=== PATIENT | female | born 1965 | race African-American/Black ===

== ENCOUNTER 2017-02-07 15:25 | Observation (INO) | payer BC ==
--- NOTE | 2017-02-07 16:04 | ER Document Report ---
ED Medical Screen (RME) - General Chief Complaint: Chest Pain Stated Complaint: CHEST PAIN Time seen by provider: 16:01 Mode of Arrival: Wheelchair Information source: Patient TRAVEL OUTSIDE OF THE [place] IN LAST 30 DAYS: No - HPI Patient complains to provider of: chest pain, lightheaded Onset: This afternoon - 2pm Onset/Duration: Sudden Quality of pain: Pressure, Stabbing Severity: Moderate Pain Level: 3 Associated Symptoms: Chest pain, Nausea, Shortness of breath, Sweating Exacerbated by: Denies Relieved by: Denies Similar symptoms previously: Yes Recently seen / treated by doctor: Yes Notes: 02/07/17 16:04 02/07/17 16:05 Patient is a 51-year-old female with history of high blood pressure and diabetes who presents to the emergency room complaining of sharp stabbing chest pain that started around 2 PM she was at work, patient reports she took 3 sublingual nitroglycerin and 3 baby aspirin prior to arrival and her symptoms have begun to resolve intermittently, she reports some shortness of breath as well as a flushing sensation at onset of symptoms - Related Data Allergies/Adverse Reactions: codeine Allergy (Verified 07/05/16 17:03) propofol [From Diprivan] Adverse Reaction (Verified 07/05/16 15:16) Past Medical History - Past Medical History Cardiac Medical History: Reports: Hx Atrial Fibrillation, Hx Heart Attack - Per patient, Hx Hypercholesterolemia, Hx Hypertension Neurological Medical History: Denies: Hx Seizures Endocrine Medical History: Reports: Hx Diabetes Mellitus Type 2 Renal/ Medical History: Denies: Hx Peritoneal Dialysis GI Medical History: Reports: Hx Hiatal Hernia Past Surgical History: Reports: Hx Cardiac Catheterization, Hx Gynecologic Surgery - Hx Laparoscopy., Hx Hysterectomy, Hx Tubal Ligation - Immunizations Hx Diphtheria, Pertussis, Tetanus Vaccination: Yes Physical Exam - Vital signs Vitals: Temp Pulse Resp BP Pulse Ox 98.1 F 86 20 157/85 H 100 02/07/17 15:50 02/07/17 15:50 02/07/17 15:50 02/07/17 15:50 02/07/17 15:50 Course - Vital Signs Vital signs: Temp Pulse Resp BP Pulse Ox 98.1 F 86 20 157/85 H 100 02/07/17 15:50 02/07/17 15:50 02/07/17 15:50 02/07/17 15:50 02/07/17 15:50
[2017-02-07 16:37] LABS: APPEARANCE,URINE CLEAR; BILIRUBIN,URINE NEGATIVE (NEGATIVE); GLUCOSE, URINE >=500 mg/dL (NEGATIVE); KETONES,URINE TRACE mg/dL (NEGATIVE); LEUKOCYTE ESTERASE,URINE NEGATIVE (NEGATIVE); NITRITE,URINE NEGATIVE (NEGATIVE); PROTEIN,URINE NEGATIVE (NEGATIVE); URINE SPECIFIC GRAVITY 1.036; UROBILINOGEN,URINE NEGATIVE mg/dL (<2.0)
[2017-02-07 16:41] LABS: ABSOLUTE EOSINOPHILS # (AUTO) 0.1 10^3/uL (0.0-0.6); ABSOLUTE LYMPHOCYTES (AUTO) 3.3 10^3/uL (0.5-4.7); ABSOLUTE MONOCYTES (AUTO) 0.5 10^3/uL (0.1-1.4); ABSOLUTE NEUT (AUTO) 5.5 10^3/uL (1.7-8.2); BASOPHILS % (AUTO) 0.4 % (0-2); EOSINOPHILS % (AUTO) 0.6 % (0-6); HEMATOCRIT 33.6 % (36.0-47.0); HEMOGLOBIN 11.1 g/dL (12.0-15.5); HGB HCT DIFFERENCE -0.3; LYMPHOCYTES % (AUTO) 35.4 % (13-45); MEAN CORPUSCULAR HGB CONC 32.9 g/dL (32.0-36.0); MEAN CORPUSCULAR VOLUME 85 fl (80-97); MONOCYTES % (AUTO) 5.1 % (3-13); RED BLOOD COUNT 3.96 10^6/uL (3.72-5.28); RED CELL DISTRIBUTION WIDTH 12.8 % (11.5-14.0); SEGMENTED NEUTROPHILS % (AUTO) 58.5 % (42-78); WHITE BLOOD COUNT 9.3 10^3/uL (4.0-10.5)
[2017-02-07 16:52] LABS: ALANINE AMINOTRANSFERASE 51 U/L (9-52); ALBUMIN 4.1 g/dL (3.5-5.0); ALKALINE PHOSPHATASE 76 U/L (38-126); ANION GAP 12 (5-19); ASPARTATE AMINO TRANSFERASE 38 U/L (14-36); BILIRUBIN,DIRECT 0.1 mg/dL (0.0-0.4); BILIRUBIN,TOTAL 0.3 mg/dL (0.2-1.3); BLOOD UREA NITROGEN 13 mg/dL (7-20); CARBON DIOXIDE 28 mmol/L (22-30); CHLORIDE 102 mmol/L (98-107); CREATINE KINASE 75 U/L (30-135); CREATININE RESULT 0.67 mg/dL (0.52-1.25); GLUCOSE 389 mg/dL (75-110); SODIUM 141.9 mmol/L (137-145); TOTAL PROTEIN 6.8 g/dL (6.3-8.2)
[2017-02-07 17:10] LABS: CREATINE KINASE MB 0.31 ng/mL (<4.55)
[2017-02-07 17:11] LABS: TROPONIN I < 0.012 ng/mL
--- NOTE | 2017-02-07 18:04 | ER Document Report ---
ED Cardiac - General Chief Complaint: Chest Pain Stated Complaint: CHEST PAIN Time seen by provider: 18:02 Mode of Arrival: Ambulatory Information source: Patient TRAVEL OUTSIDE OF THE [place] IN LAST 30 DAYS: No - HPI Patient complains to provider of: Chest pain Was the onset of pain: Sudden Is the pain a: New problem Chest pain location: Substernal Quality of pain: Heaviness - Related Data Allergies/Adverse Reactions: acetaminophen [From Tylenol] Allergy (Verified 02/07/17 17:57) codeine Allergy (Verified 02/07/17 17:57) propofol [From Diprivan] Adverse Reaction (Verified 02/07/17 17:57) Past Medical History - General Information source: Patient - Social History Smoking Status: Unknown if Ever Smoked Family History: Reviewed & Not Pertinent Patient has suicidal ideation: No Patient has homicidal ideation: No - Past Medical History Cardiac Medical History: Reports: Hx Atrial Fibrillation, Hx Heart Attack - Per patient, Hx Hypercholesterolemia, Hx Hypertension Neurological Medical History: Denies: Hx Seizures Endocrine Medical History: Reports: Hx Diabetes Mellitus Type 2 Renal/ Medical History: Denies: Hx Peritoneal Dialysis GI Medical History: Reports: Hx Hiatal Hernia Past Surgical History: Reports: Hx Cardiac Catheterization, Hx Gynecologic Surgery - Hx Laparoscopy., Hx Hysterectomy, Hx Tubal Ligation - Immunizations Hx Diphtheria, Pertussis, Tetanus Vaccination: Yes Hx Pneumococcal Vaccination: 10/23/12 Physical Exam - Vital signs Vitals: Temp Pulse Resp BP Pulse Ox 98.1 F 86 20 157/85 H 100 02/07/17 15:50 02/07/17 15:50 02/07/17 15:50 02/07/17 15:50 02/07/17 15:50 Course - Vital Signs Vital signs: Temp Pulse Resp BP Pulse Ox 98.1 F 86 20 157/85 H 100 02/07/17 15:50 02/07/17 15:50 02/07/17 15:50 02/07/17 15:50 02/07/17 15:50 - Laboratory Result Diagrams: 02/07/17 16:10 02/07/17 16:10 Laboratory results interpreted by me: 02/07/17 02/07/17 02/07/17 16:10 16:10 16:10 Hgb 11.1 L Hct 33.6 L Glucose 389 H AST 38 H Urine Glucose (UA) >=500 H Urine Ketones TRACE H Discharge - Discharge Clinical Impression: Chest pain Qualifiers: Chest pain type: unspecified Qualified Code(s): R07.9 - Chest pain, unspecified Condition: Stable Disposition: ADMITTED OBSERVATION Admitting Provider: Hospitalist Unit Admitted: Telemetry
[2017-02-07] MEDS ORDERED: ONDANSETRON HCL INJ/PF 4 MG/2 ML SDV IV PRN (18:16)
[2017-02-07] MEDS ORDERED: TRAMADOL HCL 50 MG TABLET PO PRN (18:19)
[2017-02-07] MEDS ORDERED: GLUCAGON,HUMAN RECOMB 1 MG INJ IM PRN (18:20)
[2017-02-07] MEDS ORDERED: HYDRALAZINE HCL INJ/PF 20 MG/1 ML SDV IV PRN (18:20)
[2017-02-07] MEDS ORDERED: DEXTROSE 40% GEL 15 GM TUBE PO PRN ×2 (18:20)
[2017-02-07] MEDS ORDERED: DEXTROSE 50%-WATER 25 GM/50 ML DISP.SYRIN IV PRN ×2 (18:20)
--- NOTE | 2017-02-07 18:52 | PDOC H&P ---
History of Present Illness Admission Date/PCP: 02/07/17 18:28 IGNACIO CORBETT MD Patient complains of: Chest pain History of Present Illness: DAVID BAIN is a 51 year old female with past medical history of hypertension, diabetes, hypercholesterolemia that presents with onset of chest pain at 2 PM this afternoon while she was at work. She works at the [employer] and was administered aspirin and nitroglycerin the clinic. Her blood pressure at that time was in the 170/90 range. She states that she sees Dr. Magana of cardiology in [facility] for SVT. She states that she had a cardiac catheterization in October 2016 that showed "blockages" but she did not require intervention. Past Medical History Cardiac Medical History: Reports: Hyperlipidema, Hypertension, Other - SVT Neurological Medical History: Denies: Seizures Endocrine Medical History: Reports: Diabetes Mellitus Type 2 GI Medical History: Reports: Hiatal Hernia Past Surgical History Past Surgical History: Reports: Cardiac Catheterization, Hysterectomy, Tubal Ligation Social History Information Source: Patient Lives with: Family Smoking Status: Never Smoker Frequency of Alcohol Use: Rare Hx Recreational Drug Use: No Hx Prescription Drug Abuse: No - Advance Directive Resuscitation Status: Full Code Family History Family History: CAD, CVA, Malignancy Parental Family History Reviewed: Yes Children Family History Reviewed: Yes Sibling(s) Family History Reviewed.: Yes Medication/Allergy Home Medications: Valsartan/Hydrochlorothiazide [Valsartan-Hctz 160-25 mg Tab] 1 each PO QAM 09/15 Ergocalciferol (Vitamin D2) [Vitamin D2] 50,000 unit PO Q7D 07/05/16 Metformin HCl [Glucophage] 1,000 mg PO BID 07/05/16 Omeprazole [Prilosec] 20 mg PO DAILY 07/05/16 Atorvastatin Calcium [Lipitor 40 mg Tablet] 80 mg PO QHS #30 tablet 07/06/16 Flecainide Acetate [Tambocor 100 mg Tablet] 50 mg PO Q12 tablet 07/06/16 Glimepiride [Amaryl 4 mg Tablet] 4 mg PO BID #60 tablet 07/06/16 Sitagliptin Phosphate [Januvia 50 mg Tablet] 50 mg PO DAILY #30 tablet 07/06/16 Allergies/Adverse Reactions: acetaminophen [From Tylenol] Allergy (Verified 02/07/17 17:57) codeine Allergy (Verified 02/07/17 17:57) propofol [From Diprivan] Adverse Reaction (Verified 02/07/17 17:57) Review of Systems Constitutional: ABSENT: chills, fever(s), headache(s), weight gain, weight loss Eyes: ABSENT: visual disturbances Ears: ABSENT: hearing changes Cardiovascular: PRESENT: chest pain. ABSENT: dyspnea on exertion, edema, orthropnea, palpitations Respiratory: PRESENT: dyspnea. ABSENT: cough, hemoptysis Gastrointestinal: ABSENT: abdominal pain, constipation, diarrhea, hematemesis, hematochezia, nausea, vomiting Genitourinary: ABSENT: dysuria, hematuria Musculoskeletal: ABSENT: joint swelling Integumentary: ABSENT: rash, wounds Neurological: ABSENT: abnormal gait, abnormal speech, confusion, dizziness, focal weakness, syncope Psychiatric: ABSENT: anxiety, depression, homidical ideation, suicidal ideation Endocrine: ABSENT: cold intolerance, heat intolerance, polydipsia, polyuria Hematologic/Lymphatic: ABSENT: easy bleeding, easy bruising Physical Exam Vital Signs: Temp Pulse Resp BP Pulse Ox 98.1 F 86 20 157/85 H 100 02/07/17 15:50 02/07/17 15:50 02/07/17 15:50 02/07/17 15:50 02/07/17 15:50 PHYSICAL EXAM: GENERAL: Appears well, no acute distress HEENT: Normocephalic, no scleral icterus, conjunctiva clear, EOEM intact, PERRLA , moist mucous membranes NECK: trachea midline, no thyromegally RESPIRATORY: Clear to auscultation, no wheezes/rhonchi CARDIAC: Regular rate and rhythm, no murmur/marta/rub ABDOMEN: Soft, no distension, no tenderness, no guarding, normal bowel sounds, negative Calderón sign RECTAL: deferred : deferred EXTREMITIES: No edema, cyanosis, clubbing MUSCULOSKELETAL: No joint swelling or deformity VASCULAR: normal peripheral pulses NEUROLOGIC: Alert, oriented to person/place/time, normal speech, cranial nerves grossly intact, 5/5 strength in all extremities, tactile sensation intact in all extremities SKIN: No rash, no wounds, no worrisome skin lesions PSYCHIATRIC: Normal mood, normal affect Results Laboratory Results: Labs- All tests 24 hr 02/07/17 02/07/17 02/07/17 16:10 16:10 16:10 WBC 9.3 RBC 3.96 Hgb 11.1 L Hct 33.6 L MCV 85 MCH 28.0 MCHC 32.9 RDW 12.8 Plt Count 254 Seg Neutrophils % 58.5 Lymphocytes % 35.4 Monocytes % 5.1 Eosinophils % 0.6 Basophils % 0.4 Absolute Neutrophils 5.5 Absolute Lymphocytes 3.3 Absolute Monocytes 0.5 Absolute Eosinophils 0.1 Absolute Basophils 0.0 Sodium 141.9 Potassium 4.0 Chloride 102 Carbon Dioxide 28 Anion Gap 12 BUN 13 Creatinine 0.67 Est GFR ( Amer) > 60 Est GFR (Non-Af Amer) > 60 Glucose 389 H Calcium 10.0 Total Bilirubin 0.3 Direct Bilirubin 0.1 Indirect Bilirubin Not Reportable Neonat Total Bilirubin Not Reportable AST 38 H ALT 51 Alkaline Phosphatase 76 Creatine Kinase 75 CK-MB (CK-2) 0.31 Troponin I < 0.012 Total Protein 6.8 Albumin 4.1 Urine Color Urine Appearance Urine pH Ur Specific [place] Urine Protein Urine Glucose (UA) Urine Ketones Urine Blood Urine Nitrite Urine Bilirubin Urine Urobilinogen Ur Leukocyte Esterase Urine WBC (Auto) Urine RBC (Auto) Squamous Epi Cells Auto Urine Mucus (Auto) Urine Ascorbic Acid 02/07/17 16:10 WBC RBC Hgb Hct MCV MCH MCHC RDW Plt Count Seg Neutrophils % Lymphocytes % Monocytes % Eosinophils % Basophils % Absolute Neutrophils Absolute Lymphocytes Absolute Monocytes Absolute Eosinophils Absolute Basophils Sodium Potassium Chloride Carbon Dioxide Anion Gap BUN Creatinine Est GFR ( Amer) Est GFR (Non-Af Amer) Glucose Calcium Total Bilirubin Direct Bilirubin Indirect Bilirubin Neonat Total Bilirubin AST ALT Alkaline Phosphatase Creatine Kinase CK-MB (CK-2) Troponin I Total Protein Albumin Urine Color YELLOW Urine Appearance CLEAR Urine pH 5.0 Ur Specific [place] 1.036 Urine Protein NEGATIVE Urine Glucose (UA) >=500 H Urine Ketones TRACE H Urine Blood NEGATIVE Urine Nitrite NEGATIVE Urine Bilirubin NEGATIVE Urine Urobilinogen NEGATIVE Ur Leukocyte Esterase NEGATIVE Urine WBC (Auto) 1 Urine RBC (Auto) 0 Squamous Epi Cells Auto <1 Urine Mucus (Auto) RARE Urine Ascorbic Acid NEGATIVE EKG Comments: Sinus rhythm, no acute ST/T-wave changes Impressions: Chest X-Ray 02/07/17 16:05 IMPRESSION: NO SIGNIFICANT RADIOGRAPHIC FINDING IN THE CHEST. Assessment & Plan - Diagnosis (1) Chest pain Qualifiers: Chest pain type: unspecified Qualified Code(s): R07.9 - Chest pain, unspecified Is this a current diagnosis for this admission?: YesPlan: Place in observation status on telemetry monitoring. Continue aspirin. Check lipid panel. Check serial cardiac enzymes. Stress test in a.m. Obtain cardiac catheter report from earlier this year. (2) History of PSVT (paroxysmal supraventricular tachycardia) Is this a current diagnosis for this admission?: YesPlan: Followed by Dr. Magana of cardiology in [facility]. (3) DM w/o complication type II Qualifiers: Diabetes mellitus custodial insulin use: without terminal worker use Qualified Code(s): E11.9 - Type 2 diabetes mellitus without complications Is this a current diagnosis for this admission?: YesPlan: Sliding scale insulin for now. Verify home medications. (4) Dyslipidemia Is this a current diagnosis for this admission?: YesPlan: Lipitor 80 mg daily. (5) HTN (hypertension) Qualifiers: Hypertension type: essential hypertension Qualified Code(s): I10 - Essential (primary) hypertension Is this a current diagnosis for this admission?: YesPlan: When necessary IV hydralazine for now. Verify home medications. - Time Time Spent: Greater than 70 Minutes
[2017-02-07] MEDS: INSULIN LISPRO 100 UNIT/ML 3 ML VIAL SUBCUT PRN (18:58)
--- NOTE | 2017-02-07 19:38 | EKG REPORT ---
SEVERITY:- ABNORMAL ECG - SINUS RHYTHM NONSPECIFIC T ABNORMALITIES, ANT-LAT LEADS : Confirmed by: Arlene Pabon MD 07-Feb-2017 19:37:15
[2017-02-07] MEDS ORDERED: ATORVASTATIN CALCIUM 80 MG TABLET PO SCH (22:00)
[2017-02-07 23:00] LABS: TROPONIN I < 0.012 ng/mL
[2017-02-08] MEDS ORDERED: ACETAMINOPHEN 325 MG TABLET PO PRN (04:22)
[2017-02-08] MEDS ORDERED: MAG HYDROX/AL HYDROX/SIMETH SUSP 30 ML UDCUP PO ONE (04:23)
[2017-02-08] MEDS ORDERED: LANSOPRAZOLE 30 MG TAB.RAP.DR PO ONE (04:23)
[2017-02-08 04:26] LABS: CHOLESTEROL 231.33 mg/dL (0-200); CREATINE KINASE 61 U/L (30-135); Direct HDL 53 mg/dL (>40); TRIGLYCERIDES 188 mg/dL (<150)
[2017-02-08 04:37] LABS: DIRECT LDL 143 mg/dL (<100)
[2017-02-08 04:38] LABS: CREATINE KINASE MB 0.26 ng/mL (<4.55)
[2017-02-08 04:39] LABS: TROPONIN I < 0.012 ng/mL; VLDL CHOLESTEROL 37.6 mg/dL (10-31)
[2017-02-08] MEDS ORDERED: METFORMIN HCL 500 MG TABLET PO SCH (08:00)
[2017-02-08] MEDS ORDERED: ENOXAPARIN SODIUM INJ 40 MG/0.4 ML DISP.SYRIN SUBCUT SCH (08:00)
[2017-02-08] MEDS: INSULIN LISPRO 100 UNIT/ML 3 ML VIAL SUBCUT PRN ×2 (08:27→11:51)
--- NOTE | 2017-02-08 08:31 | EKG REPORT ---
SEVERITY:- BORDERLINE ECG - SINUS RHYTHM BORDERLINE T ABNORMALITIES, ANT-LAT LEADS : Confirmed by: Arlene Pabon MD 08-Feb-2017 08:31:05
[2017-02-08] MEDS ORDERED: METFORMIN HCL PO SCH (10:00)
[2017-02-08] MEDS ORDERED: VALSARTAN 160 MG TABLET PO SCH (10:00)
[2017-02-08] MEDS ORDERED: METOPROLOL SUCCINATE 25 MG TAB.SR.24H PO SCH (10:00)
[2017-02-08] MEDS ORDERED: SITAGLIPTIN PHOSPHATE 50 MG TABLET PO SCH (10:00)
[2017-02-08] MEDS ORDERED: SAXAGLIPTIN HCL PO SCH (10:00)
[2017-02-08] MEDS ORDERED: (PENDING PHARMACY ID) (Valsartan/Hydrochlorothiazide [Diovan Hct 160-25 Mg Tablet] 1 TAB) PO SCH (10:00)
[2017-02-08] MEDS ORDERED: HYDROCHLOROTHIAZIDE 25 MG TABLET PO SCH (10:00)
[2017-02-08] MEDS ORDERED: [UNRECOGNIZED DRUG - OTHER] PO SCH (10:00)
[2017-02-08] MEDS ORDERED: ASPIRIN 81 MG TABLET, ENT COATED PO SCH (10:00)
[2017-02-08 10:44] LABS: TROPONIN I < 0.012 ng/mL
[2017-02-08] MEDS ORDERED: GLIMEPIRIDE 4 MG TABLET PO SCH (12:00)
[2017-02-08 12:28] VITALS: BP 128/73
--- NOTE | 2017-02-08 12:55 | PDOC DISCHARGE SUMMARY ---
General - Admit/Disc Date/PCP Admission Date/Primary Care Provider: 02/07/17 18:16 IGNACIO CORBETT MD Discharge Date: 02/08/17 - Discharge Diagnosis (1) Chest pain Is this a current diagnosis for this admission?: Yes (2) DM w/o complication type II Is this a current diagnosis for this admission?: Yes (3) Dyslipidemia Is this a current diagnosis for this admission?: Yes (4) HTN (hypertension) Is this a current diagnosis for this admission?: Yes - Additional Information Resuscitation Status: Full Code Discharge Diet: Cardiac, Diabetic Discharge Activity: Activity As Tolerated Home Medications: Ergocalciferol (Vitamin D2) [Vitamin D2] 50,000 unit PO THRASHER@1000 02/07/17 Glimepiride [Amaryl 4 mg Tablet] 4 mg PO BID@1200,2200 02/07/17 Metoprolol Succinate [Toprol Xl 25 mg Tab.sr] 25 mg PO DAILY 02/07/17 Saxagliptin HCl/Metformin HCl [Kombiglyze Xr 2.5-1,000 mg Tab] 1 each PO BID Valsartan/Hydrochlorothiazide [Diovan Hct 160-25 mg Tablet] 1 tab PO DAILY 02/07 Acetaminophen [Tylenol 325 mg Tablet] 650 mg PO Q8HP PRN tablet 02/08/17 Aspirin [Ecotrin 81 mg EC Tablet] 81 mg PO DAILY tabec 02/08/17 Atorvastatin Calcium [Lipitor 40 mg Tablet] 40 mg PO QHS #30 tablet 02/08/17 History of Present Illness Patient complains of: Chest pain History of Present Illness: DAVID BAIN is a 51 year old female with past medical history of hypertension, diabetes, hypercholesterolemia that presents with onset of chest pain at 2 PM this afternoon while she was at work. She works at the [employer] and was administered aspirin and nitroglycerin the clinic. Her blood pressure at that time was in the 170/90 range. She states that she sees Dr. Magana of cardiology in [facility] for SVT. She states that she had a cardiac catheterization in October 2016 that showed "blockages" but she did not require intervention. Hospital Course Hospital Course: Patient was admitted for chest pain. Serial cardiac enzymes were negative for HI. Patient had a cardiac catheterization in October 2015 that was completely normal. Cardiac catheterization report was obtained from [facility]. Case was discussed with patient's instructor of nursing Dr. Mine Magana. Dr. Magana states the patient has a history of PACs but no history of coronary artery disease. Patient is to follow-up with Dr. Magana is now patient. She will need to resume treatment for hypercholesterolemia and improve control of her diabetes. With regard to patient's hypercholesterolemia, she is not taking medications as prescribed. She was supposed be on Lipitor 80 mg daily but it doesn't look like this is been filled in the past 6 months. I will restart her on Lipitor 40 mg daily based on elevated cholesterol readings. With regard to patient's diabetes, hemoglobin A1c is 9.5 indicating poor outpatient control. According to her she does not follow a diabetic diet and eats a lot of "sweets" and drinks sodas. She is followed by Dr. Hopper of endocrinology in [facility]. I have advised her to continue her current diabetic regimen and follow a strict diabetic diet. She has follow-up appointment with Dr. Hopper in March of this year. Physical Exam Vital Signs: Temp Pulse Resp BP Pulse Ox 97.9 F 72 20 150/70 H 100 02/08/17 12:15 02/08/17 12:15 02/08/17 12:15 02/08/17 12:15 02/08/17 12:15 Intake & Output 02/07/17 02/08/17 02/09/17 06:59 06:59 06:59 Intake Total 237 Balance 237 Weight 72 kg GENERAL: No acute distress HEENT: Conjunctiva clear, nonicteric, moist mucous membranes, no JVD, midline trachea RESPIRATORY: Clear to auscultation bilaterally, no wheezes, no rhonchi CARDIAC: Regular rate and rhythm, no murmurs/gallops/rubs ABDOMEN: Soft, nondistended, nontender, positive bowel sounds, no rebound, no guarding EXTREMETIES: No edema, cyanosis, clubbing NEUROLOGIC: Alert, oriented to person/place/time, CN's grossly intact, no focal deficits SKIN: No rash, wounds PSYCH: Normal mood, normal affect Results Laboratory Results: 02/08/17 03:55 Triglycerides 188 H Cholesterol 231.33 H LDL Cholesterol Direct 143 H VLDL Cholesterol 37.6 H HDL Cholesterol 53 02/07/17 02/07/17 02/08/17 22:15 22:15 03:55 Creatine Kinase 73 CK-MB (CK-2) 0.30 0.26 Troponin I < 0.012 < 0.012 02/08/17 02/08/17 03:55 09:51 Creatine Kinase 61 CK-MB (CK-2) 0.30 Troponin I < 0.012 Labs- Last Values WBC 9.3 10^3/uL (4.0-10.5) 02/07/17 16:10 RBC 3.96 10^6/uL (3.72-5.28) 02/07/17 16:10 Hgb 11.1 g/dL (12.0-15.5) L 02/07/17 16:10 Hct 33.6 % (36.0-47.0) L 02/07/17 16:10 MCV 85 fl (80-97) 02/07/17 16:10 MCH 28.0 pg (27.0-33.4) 02/07/17 16:10 MCHC 32.9 g/dL (32.0-36.0) 02/07/17 16:10 RDW 12.8 % (11.5-14.0) 02/07/17 16:10 Plt Count 254 10^3/uL (150-450) 02/07/17 16:10 Seg Neutrophils % 58.5 % (42-78) 02/07/17 16:10 Lymphocytes % 35.4 % (13-45) 02/07/17 16:10 Monocytes % 5.1 % (3-13) 02/07/17 16:10 Eosinophils % 0.6 % (0-6) 02/07/17 16:10 Basophils % 0.4 % (0-2) 02/07/17 16:10 Absolute Neutrophils 5.5 10^3/uL (1.7-8.2) 02/07/17 16:10 Absolute Lymphocytes 3.3 10^3/uL (0.5-4.7) 02/07/17 16:10 Absolute Monocytes 0.5 10^3/uL (0.1-1.4) 02/07/17 16:10 Absolute Eosinophils 0.1 10^3/uL (0.0-0.6) 02/07/17 16:10 Absolute Basophils 0.0 10^3/uL (0.0-0.2) 02/07/17 16:10 Sodium 141.9 mmol/L (137-145) 02/07/17 16:10 Potassium 4.0 mmol/L (3.6-5.0) 02/07/17 16:10 Chloride 102 mmol/L (98-107) 02/07/17 16:10 Carbon Dioxide 28 mmol/L (22-30) 02/07/17 16:10 Anion Gap 12 (5-19) 02/07/17 16:10 BUN 13 mg/dL (7-20) 02/07/17 16:10 Creatinine 0.67 mg/dL (0.52-1.25) 02/07/17 16:10 Est GFR ( Amer) > 60 (>60) 02/07/17 16:10 Est GFR (Non-Af Amer) > 60 (>60) 02/07/17 16:10 Glucose 389 mg/dL (75-110) H 02/07/17 16:10 POC Glucose 210 mg/dL (70-110) H 02/08/17 11:20 Hemoglobin A1c % 9.5 % (4.7-6.0) H 02/08/17 03:55 Calcium 10.0 mg/dL (8.4-10.2) 02/07/17 16:10 Total Bilirubin 0.3 mg/dL (0.2-1.3) 02/07/17 16:10 Direct Bilirubin 0.1 mg/dL (0.0-0.4) 02/07/17 16:10 Indirect Bilirubin Not Reportable 02/07/17 16:10 Neonat Total Bilirubin Not Reportable 02/07/17 16:10 AST 38 U/L (14-36) H 02/07/17 16:10 ALT 51 U/L (9-52) 02/07/17 16:10 Alkaline Phosphatase 76 U/L (38-126) 02/07/17 16:10 Creatine Kinase 61 U/L (30-135) 02/08/17 03:55 CK-MB (CK-2) 0.30 ng/mL (<4.55) 02/08/17 09:51 Troponin I < 0.012 ng/mL 02/08/17 09:51 Total Protein 6.8 g/dL (6.3-8.2) 02/07/17 16:10 Albumin 4.1 g/dL (3.5-5.0) 02/07/17 16:10 Triglycerides 188 mg/dL (<150) H 02/08/17 03:55 Cholesterol 231.33 mg/dL (0-200) H 02/08/17 03:55 LDL Cholesterol Direct 143 mg/dL (<100) H 02/08/17 03:55 VLDL Cholesterol 37.6 mg/dL (10-31) H 02/08/17 03:55 HDL Cholesterol 53 mg/dL (>40) 02/08/17 03:55 Urine Color YELLOW 02/07/17 16:10 Urine Appearance CLEAR 02/07/17 16:10 Urine pH 5.0 (5.0-9.0) 02/07/17 16:10 Ur Specific [place] 1.036 02/07/17 16:10 Urine Protein NEGATIVE mg/dL (NEGATIVE) 02/07/17 16:10 Urine Glucose (UA) >=500 mg/dL (NEGATIVE) H 02/07/17 16:10 Urine Ketones TRACE mg/dL (NEGATIVE) H 02/07/17 16:10 Urine Blood NEGATIVE (NEGATIVE) 02/07/17 16:10 Urine Nitrite NEGATIVE (NEGATIVE) 02/07/17 16:10 Urine Bilirubin NEGATIVE (NEGATIVE) 02/07/17 16:10 Urine Urobilinogen NEGATIVE mg/dL (<2.0) 02/07/17 16:10 Ur Leukocyte Esterase NEGATIVE (NEGATIVE) 02/07/17 16:10 Urine WBC (Auto) 1 /HPF 02/07/17 16:10 Urine RBC (Auto) 0 /HPF 02/07/17 16:10 Squamous Epi Cells Auto <1 /HPF 02/07/17 16:10 Urine Mucus (Auto) RARE /LPF 02/07/17 16:10 Urine Ascorbic Acid NEGATIVE (NEGATIVE) 02/07/17 16:10 Impressions: Chest X-Ray 02/07/17 16:05 IMPRESSION: NO SIGNIFICANT RADIOGRAPHIC FINDING IN THE CHEST. Qualifiers PATEINT BEING DISCHARGED WITH ANY OF THE FOLLOWING DIAGNOSIS?: No Plan Time Spent: Less than 30 Minutes
[2017-02-12] MEDS ORDERED: ERGOCALCIFEROL (VITAMIN D2) 50000 UNIT (1.25 MG) CAPSULE PO SCH (10:00)
== END 2017-02-08 12:34 | disposition home or self-care (01) ==
LOC: ER 15:25 → EH 18:16 → UNDOADMOB 18:28 → EH 18:28 → 3S 23:39
DX: R07.89 Other chest pain (principal); E11.9 Type 2 diabetes mellitus without complications; E78.5 Hyperlipidemia, unspecified; I10 Essential (primary) hypertension; R06.00 Dyspnea, unspecified; I25.2 Old myocardial infarction; Z91.14 Patient's other noncompliance with medication regimen; Z82.49 Family history of ischemic heart disease and other diseases of the circulatory system; Z80.9 Family history of malignant neoplasm, unspecified; Z79.84 Long term (current) use of oral hypoglycemic drugs; Z79.899 Other long term (current) drug therapy; Z86.79 Personal history of other diseases of the circulatory system
CPT/HCPCS: 93005 ×2; 99285; 36415 ×2; 87086; 82553 ×2; 82962 ×2; 82550 ×2; 85025; 80053; 81001; 84484 ×2; 83036; 80061; 71020; 93010 ×2; G0378 ×2; J1815 ×2; J3490

== ENCOUNTER 2018-11-20 00:57 | Emergency (ER) | payer BC ==
[2018-11-20 01:14] VITALS: BP 150/73
--- NOTE | 2018-11-20 02:16 | ER Document Report ---
ED Medical Screen (RME) - General Chief Complaint: Leg Pain Stated Complaint: LEG PROBLEM Time Seen by Provider: 11/20/18 02:10 Primary Care Provider: IGNACIO CORBETT MD [Primary Care Provider] - Follow up as needed Mode of Arrival: Ambulatory Information source: Patient Notes: 53-year-old female presents to ED for complaint of left leg pain from behind the knee down to the ankle. She states she has a history of a blood clot in 2017 in her right arm as well as atrial fib stroke in 2017 she was on anticoagulation medicine but they sent her home on aspirin and she has not been on any medication since then for the stroke or clot or atrial fib. She states she has had a hysterectomy bilateral tubal ligation and a heart cath. 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 She denies smoking drinking or using any drugs. She denies any long trips. She denies any hormone therapy. Her only risk factor is the previous stroke atrial fib and previous clot. Patient is alert oriented respirations regular and unlabored walks with a limp due to the pain in the back of the left leg. I spoke with Dr. Pedraza who recommended no labs at this time that the patient needed to be seen by the providers in the back and determine whether they would hold it for the Doppler or have her come back for the Doppler. I have greeted and performed a rapid initial assessment of this patient. A comprehensive ED assessment and evaluation of the patient, analysis of test results and completion of medical decision making process will be conducted by an additional ED providers. TRAVEL OUTSIDE OF THE [place] IN LAST 30 DAYS: No - Related Data Allergies/Adverse Reactions: codeine Allergy (Verified 02/07/17 17:57) propofol [From Diprivan] Adverse Reaction (Verified 02/07/17 17:57) Past Medical History - Past Medical History Cardiac Medical History: Reports: Hx Atrial Fibrillation, Hx Heart Attack - Per patient, Hx Hypercholesterolemia, Hx Hypertension Neurological Medical History: Denies: Hx Seizures Endocrine Medical History: Reports: Hx Diabetes Mellitus Type 2 Renal/ Medical History: Denies: Hx Peritoneal Dialysis GI Medical History: Reports: Hx Hiatal Hernia Past Surgical History: Reports: Hx Cardiac Catheterization, Hx Gynecologic Surgery - Hx Laparoscopy., Hx Hysterectomy, Hx Tubal Ligation - Immunizations Hx Diphtheria, Pertussis, Tetanus Vaccination: Yes Physical Exam - Vital signs Vitals: Temp Pulse Resp BP Pulse Ox 97.4 F 92 18 150/73 H 100 11/20/18 01:13 11/20/18 01:13 11/20/18 01:13 11/20/18 01:13 11/20/18 01:13 Course - Vital Signs Vital signs: Temp Pulse Resp BP Pulse Ox 97.4 F 92 18 150/73 H 100 11/20/18 01:13 11/20/18 01:13 11/20/18 01:13 11/20/18 01:13 11/20/18 01:13 Doctor's Discharge - Discharge Referrals: IGNACIO CORBETT MD [Primary Care Provider] - Follow up as needed
== END 2018-11-20 04:45 | disposition left against medical advice (07) ==
LOC: ER 00:57
DX: Z53.21 Procedure and treatment not carried out due to patient leaving prior to being seen by health care provider (principal); M79.605 Pain in left leg; M25.562 Pain in left knee; M25.572 Pain in left ankle and joints of left foot; I48.91 Unspecified atrial fibrillation; Z79.82 Long term (current) use of aspirin; Z86.718 Personal history of other venous thrombosis and embolism; I10 Essential (primary) hypertension; E11.9 Type 2 diabetes mellitus without complications
CPT/HCPCS: 99281

== ENCOUNTER 2019-05-07 10:51 | Emergency (ER) | payer BC ==
[2019-05-07 11:09] VITALS: BP 113/65
--- NOTE | 2019-05-07 12:00 | ER Document Report ---
ED Medical Screen (RME) - General Chief Complaint: Passed Out Prior to Arrival Stated Complaint: SYNCOPE Time Seen by Provider: 05/07/19 11:46 Primary Care Provider: JUAN DIEGO JOHN FNP [Primary Care Provider] - Follow up as needed Mode of Arrival: Wheelchair Information source: Patient Notes: This 53-year-old female presents to the emergency department post syncope episode reports she was at her primary care providers today where she had blood work and a pelvic done. She reports she had a pelvic done because of vaginal bleeding but it turned out to be hematuria. She reports her sugar was up. Patient is a diabetic. After her appointment he was walking out to her car to go back to work and her legs became wobbly next thing she knows she woke up on the ground. She reports all her belongings were scattered. She believes she fell on her knees because her knees are hurting. Reports this never happened to her before. She has a history of atrial fib but is not taking medication for because she has not had any episodes for 3 years. She reports that her primary care provider noted blood in her urine today. Patient reports she still feels fuzzy in she experiencing urgency frequency I have greeted and performed a rapid initial assessment of this patient. A comprehensive ED assessment and evaluation of the patient, analysis of test results and completion of the medical decision making process will be conducted by additional ED providers. Dictation of this chart was performed using voice recognition software; therefore, there may be some unintended grammatical errors. TRAVEL OUTSIDE OF THE [place] IN LAST 30 DAYS: No - Related Data Allergies/Adverse Reactions: codeine Allergy (Verified 05/07/19 10:54) propofol [From Diprivan] Adverse Reaction (Verified 05/07/19 10:54) Past Medical History - Past Medical History Cardiac Medical History: Reports: Hx Atrial Fibrillation, Hx Heart Attack - Per patient, Hx Hypercholesterolemia, Hx Hypertension Neurological Medical History: Denies: Hx Seizures Endocrine Medical History: Reports: Hx Diabetes Mellitus Type 2 Renal/ Medical History: Denies: Hx Peritoneal Dialysis GI Medical History: Reports: Hx Hiatal Hernia Past Surgical History: Reports: Hx Cardiac Catheterization, Hx Gynecologic Surgery - Hx Laparoscopy., Hx Hysterectomy, Hx Tubal Ligation - Immunizations Hx Diphtheria, Pertussis, Tetanus Vaccination: Yes Physical Exam - Vital signs Vitals: Temp Pulse Resp BP Pulse Ox 97.4 F 87 20 113/65 98 07/16/19 11:08 05/07/19 11:08 05/07/19 11:08 05/07/19 11:08 05/07/19 11:08 Course - Vital Signs Vital signs: Temp Pulse Resp BP Pulse Ox 97.4 F 87 20 113/65 98 05/07/19 11:08 05/07/19 11:08 05/07/19 11:08 05/07/19 11:08 05/07/19 11:08 Doctor's Discharge - Discharge Referrals: JUAN DIEGO JOHN FNP [Primary Care Provider] - Follow up as needed
[2019-05-07 12:25] LABS: ABSOLUTE BASOPHILS # (AUTO) 0.1 10^3/uL (0.0-0.2); ABSOLUTE EOSINOPHILS # (AUTO) 0.1 10^3/uL (0.0-0.6); ABSOLUTE LYMPHOCYTES (AUTO) 2.3 10^3/uL (0.5-4.7); ABSOLUTE MONOCYTES (AUTO) 0.5 10^3/uL (0.1-1.4); ABSOLUTE NEUT (AUTO) 7.5 10^3/uL (1.7-8.2); BASOPHILS % (AUTO) 0.6 % (0-2); EOSINOPHILS % (AUTO) 0.6 % (0-6); HEMATOCRIT 38.6 % (36.0-47.0); HEMOGLOBIN 12.5 g/dL (12.0-15.5); LYMPHOCYTES % (AUTO) 22.3 % (13-45); MEAN CORPUSCULAR HEMOGLOBIN 27.7 pg (27.0-33.4); MEAN CORPUSCULAR HGB CONC 32.5 g/dL (32.0-36.0); MEAN CORPUSCULAR VOLUME 85 fl (80-97); MONOCYTES % (AUTO) 4.5 % (3-13); PLATELET COUNT 331 10^3/uL (150-450); RED BLOOD COUNT 4.53 10^6/uL (3.72-5.28); RED CELL DISTRIBUTION WIDTH 13.4 % (11.5-14.0); TOTAL CELLS COUNTED % (AUTO) 100 %; WHITE BLOOD COUNT 10.4 10^3/uL (4.0-10.5)
[2019-05-07 12:27] LABS: APPEARANCE,URINE CLEAR; BILIRUBIN,URINE NEGATIVE (NEGATIVE); COLOR,URINE STRAW; GLUCOSE, URINE >=500 mg/dL (NEGATIVE); KETONES,URINE 80 mg/dL (NEGATIVE); LEUKOCYTE ESTERASE,URINE NEGATIVE (NEGATIVE); NITRITE,URINE NEGATIVE (NEGATIVE); PROTEIN,URINE NEGATIVE (NEGATIVE); UROBILINOGEN,URINE NEGATIVE mg/dL (<2.0)
[2019-05-07 12:47] LABS: ALANINE AMINOTRANSFERASE 44 U/L (9-52); ALBUMIN 4.7 g/dL (3.5-5.0); ALKALINE PHOSPHATASE 95 U/L (38-126); ANION GAP 14 (5-19); ASPARTATE AMINO TRANSFERASE 37 U/L (14-36); BILIRUBIN,DIRECT 0.3 mg/dL (0.0-0.4); BILIRUBIN,TOTAL 1.1 mg/dL (0.2-1.3); BLOOD UREA NITROGEN 18 mg/dL (7-20); CALCIUM 10.2 mg/dL (8.4-10.2); CARBON DIOXIDE 24 mmol/L (22-30); CHLORIDE 99 mmol/L (98-107); GLUCOSE 311 mg/dL (75-110); POTASSIUM 4.4 mmol/L (3.6-5.0); SODIUM 136.7 mmol/L (137-145); TOTAL PROTEIN 7.9 g/dL (6.3-8.2)
== END 2019-05-07 13:00 | disposition left against medical advice (07) ==
LOC: ER 10:51
DX: R55 Syncope and collapse (principal); M25.561 Pain in right knee; M25.562 Pain in left knee; I10 Essential (primary) hypertension; I25.2 Old myocardial infarction; E11.9 Type 2 diabetes mellitus without complications; Z53.20 Procedure and treatment not carried out because of patient's decision for unspecified reasons; Z88.5 Allergy status to narcotic agent; Z90.710 Acquired absence of both cervix and uterus; Z98.51 Tubal ligation status
CPT/HCPCS: 36415; 80053; 81001; 82962; 85025

== ENCOUNTER 2020-03-23 03:16 | Observation (INO) | payer BC ==
[2020-03-23 03:48] LABS: ABSOLUTE BASOPHILS # (AUTO) 0.1 10^3/uL (0.0-0.2); ABSOLUTE EOSINOPHILS # (AUTO) 0.1 10^3/uL (0.0-0.6); ABSOLUTE LYMPHOCYTES (AUTO) 3.9 10^3/uL (0.5-4.7); ABSOLUTE MONOCYTES (AUTO) 0.6 10^3/uL (0.1-1.4); ABSOLUTE NEUT (AUTO) 6.2 10^3/uL (1.7-8.2); BASOPHILS % (AUTO) 0.5 % (0-2); HEMATOCRIT 39.3 % (36.0-47.0); LYMPHOCYTES % (AUTO) 36.1 % (13-45); MEAN CORPUSCULAR HEMOGLOBIN 28.6 pg (27.0-33.4); MEAN CORPUSCULAR HGB CONC 33.1 g/dL (32.0-36.0); MEAN CORPUSCULAR VOLUME 86 fl (80-97); MONOCYTES % (AUTO) 5.2 % (3-13); PLATELET COUNT 287 10^3/uL (150-450); RED BLOOD COUNT 4.56 10^6/uL (3.72-5.28); RED CELL DISTRIBUTION WIDTH 12.8 % (11.5-14.0); SEGMENTED NEUTROPHILS % (AUTO) 57.2 % (42-78); TOTAL CELLS COUNTED % (AUTO) 100 %; WHITE BLOOD COUNT 10.9 10^3/uL (4.0-10.5)
[2020-03-23 04:03] LABS: ALBUMIN 4.5 g/dL (3.5-5.0); ALKALINE PHOSPHATASE 87 U/L (38-126); ASPARTATE AMINO TRANSFERASE 37 U/L (14-36); CARBON DIOXIDE 27 mmol/L (22-30); TOTAL PROTEIN 7.8 g/dL (6.3-8.2)
[2020-03-23 04:16] LABS: ANION GAP 11 (5-19); BLOOD UREA NITROGEN 17 mg/dL (7-20); CALCIUM 10.3 mg/dL (8.4-10.2); CHLORIDE 100 mmol/L (98-107); GLUCOSE 217 mg/dL (75-110); POTASSIUM 3.4 mmol/L (3.6-5.0)
--- NOTE | 2020-03-23 04:21 | RADIOLOGY REPORT (SQ) ---
AP Portable chest: 03/23/2020 3:20 AM CDT History: 54-year old patient with chest pain, dizziness. Comparison: Chest radiograph performed 02/07/2017. Findings: The cardiomediastinal silhouette is normal in size. No pneumothorax is seen. No acute airspace opacities are seen. No discrete pleural effusion is apparent. Impression: No acute airspace opacities are seen.
[2020-03-23 04:28] LABS: BILIRUBIN,TOTAL 0.4 mg/dL (0.2-1.3); NEONATAL BILIRUBIN RESULT 0.5 mg/dL (0.1-1.1)
--- NOTE | 2020-03-23 06:22 | EKG REPORT ---
SEVERITY:- BORDERLINE ECG - SINUS RHYTHM PROBABLE LEFT ATRIAL ABNORMALITY : Confirmed by: Tadeo Barry MD 23-Mar-2020 06:21:50
[2020-03-23] MEDS ORDERED: ONDANSETRON HCL INJ/PF 4 MG/2 ML SDV IV ONE (06:38)
[2020-03-23] MEDS ORDERED: METOPROLOL TARTRATE PF/INJ 5 MG/5 ML SDV IV ONE (06:38)
[2020-03-23] MEDS ORDERED: MECLIZINE HCL 25 MG TABLET PO ONE (06:39)
[2020-03-23] MEDS ORDERED: NORMAL SALINE 1000 ML 1,000 ML IV ONE (06:39)
--- NOTE | 2020-03-23 07:05 | ER Document Report ---
Entered by LORIE EASTMAN SCRIBE 03/23/20 0622 Acting as scribe for:JUNIOR PANDYA MD ED General - General Chief Complaint: High Blood Pressure Stated Complaint: REPORTS HIGH BLOOD PRESSURE Time Seen by Provider: 03/23/20 06:06 Mode of Arrival: Ambulatory Information source: Patient Notes: This 54-year-old female patient presents to the emergency department today with complaints of dizziness which began yesterday around 5:00 PM. Patient mentions that she thinks her symptoms could be related to "eating too many crabs yesterday", further mentioning that her told her that it "could be the amount of sodium she ate". Patient has not taken her blood pressure medication today. Patient has never had vertigo in the past. She does have a past medical history of atrial fibrillation, but is not on medications as she has not had an episode in a few years. TRAVEL OUTSIDE OF THE [place] IN LAST 30 DAYS: No - Related Data Allergies/Adverse Reactions: codeine Allergy (Verified 03/23/20 15:50) propofol [From Diprivan] Adverse Reaction (Verified 03/23/20 15:50) Past Medical History - General Information source: Patient - Social History Smoking Status: Former Smoker - quit 20 years ago Cigarette use (# per day): No Chew tobacco use (# tins/day): No Smoking Education Provided: No Frequency of alcohol use: None Drug Abuse: None Lives with: Spouse/Significant other Family History: CAD, CVA, Malignancy Patient has homicidal ideation: No - Past Medical History Cardiac Medical History: Reports: Hx Atrial Fibrillation, Hx Heart Attack - Per patient, Hx Hypercholesterolemia, Hx Hypertension Endocrine Medical History: Reports: Hx Diabetes Mellitus Type 2 GI Medical History: Reports: Hx Hiatal Hernia Past Surgical History: Reports: Hx Cardiac Catheterization, Hx Gynecologic Surgery - Hx Laparoscopy, Hx Hysterectomy, Hx Tubal Ligation - Immunizations Hx Diphtheria, Pertussis, Tetanus Vaccination: Yes Hx Pneumococcal Vaccination: 10/23/12 Review of Systems - Review of Systems Constitutional: No symptoms reported EENT: No symptoms reported Cardiovascular: See HPI, Dizziness Respiratory: No symptoms reported Gastrointestinal: No symptoms reported Genitourinary: No symptoms reported Female Genitourinary: No symptoms reported Musculoskeletal: No symptoms reported Skin: No symptoms reported Hematologic/Lymphatic: No symptoms reported Neurological/Psychological: No symptoms reported -: Yes All other systems reviewed and negative Physical Exam - Vital signs Vitals: Resp Pulse Ox 14 99 03/23/20 03:31 03/23/20 03:31 - Notes Notes: Physical Exam: General: Alert, complains of severe dizziness when sat up for lung auscultation. HEENT: Normocephalic. Atraumatic. PERRL. Extraocular movements intact. Brenden pharynx clear. Neck: Supple. Non-tender. Respiratory: No respiratory distress. Clear and equal breath sounds bilaterally. Cardiovascular: Regular rate and rhythm. Abdominal: Obese. Non-tender. No distension. Normal Bowel Sounds. Back: No gross abnormalities. Extremities: Moves all four extremities. Upper extremities: Normal inspection. Normal ROM. Lower extremities: Normal inspection. No edema. Normal ROM. Neurological: Normal cognition. AAOx4. Normal speech. Psychological: Normal affect. Normal Mood. Skin: Warm. Dry. Normal color. Course - Re-evaluation Re-evalutation: 03/23/20 12:22 After the MRI was done, the patient was reevaluated. She states that her dizziness feels a little better than it did this morning but is still present. I had the nurse sit her up and then stand her up to be sure her blood pressure did not fall. The nurse reported that when she tried to get the patient up that her heart rate went up to 130+ and her systolic blood pressure went up to 180+. She did not seem to be able to sit up or stand without leaning on someone or something. There does seem to be significant amount amount of anxiety associated with this. We will give the patient Ativan 0.5 mg IV as this often helps with vertigo and will help with anxiety, we will then reassess. 03/23/20 14:30 About an hour after the patient received Ativan, the nurse tried to get her up again. She did orthostatics and got a blood pressure 128/68 lying down, 168/96 sitting up, and 176/103 standing. Her heart rate went from the 80s to 120 going from lying to standing. She complains of the dizziness being much worse. - Vital Signs Vital signs: Temp Pulse Resp BP Pulse Ox 97.4 F 80 17 129/68 H 97 03/24/20 12:06 03/24/20 12:06 03/24/20 12:03/24/20 12:06 03/24/20 12:06 - Laboratory Result Diagrams: 03/23/20 03:33 03/24/20 04:54 Laboratory results interpreted by me: 03/23/20 03/23/20 03/23/20 03:24 03:33 03:33 WBC 10.9 H Potassium 3.4 L Glucose 217 H POC Glucose 170 H Calcium 10.3 H AST 37 H ALT 55 H - Diagnostic Test Radiology reviewed: Image reviewed, Reports reviewed - Noncontrast CT scan of the head was unremarkable. Noncontrasted MRI of the brain does not show evidence of stroke. - EKG Interpretation by Me EKG shows normal: Sinus rhythm, [place], Intervals, QRS Complexes, ST-T Waves Rate: Normal - 86 Rhythm: NSR P Waves: LAE When compared to previous EKG there are: No significant change - Consults Dr. Bee Time consulted: 13:50 Consulted provider: will come to ER Discharge - Discharge Clinical Impression: Dizziness Condition: Stable Disposition: HOME, SELF-CARE I personally performed the services described in the documentation, reviewed and edited the documentation which was dictated to the scribe in my presence, and it accurately records my words and actions.
--- NOTE | 2020-03-23 08:11 | RADIOLOGY REPORT (SQ) ---
CT of the head: 03/23/2020 7:09 AM CDT HISTORY: 54-year-old patient with dizziness, hypertension, headache. COMPARISON: None available TECHNIQUE: Multiple axial contiguous images were obtained through the head without intravenous contrast administered. This exam was performed according to our departmental dose-optimization program, which includes automated exposure control, adjustment of the mA and/or KV according to the patient's size and/or use of iterative reconstruction technique. FINDINGS: The ventricles are within normal limits for size. Both orbits appear unremarkable. The mastoid air cells appear clear. The visualized paranasal sinuses appear clear. The calvarium is intact. No extra-axial fluid collection is seen. Bilateral basal ganglia calcifications are seen. The cook-white matter differentiation is within normal limits. No midline shift or mass effect is apparent. There are no findings to suggest acute intracranial hemorrhage. IMPRESSION: No acute intracranial hemorrhage is seen.
--- NOTE | 2020-03-23 11:25 | RADIOLOGY REPORT (SQ) ---
EXAM DESCRIPTION: MRI HEAD WITHOUT IMAGES COMPLETED DATE/TIME: 03/23/2020 11:00 am REASON FOR STUDY: Dizziness COMPARISON: None. TECHNIQUE: Multiplanar imaging includes non-contrasted T1, T2, FLAIR, and diffusion with ADC map seq uences. Images stored on PACS. LIMITATIONS: None. FINDINGS: There is no restricted diffusion on the DWI. There is no T2 or FLAIR signal abnormality. There is no acute intracranial hemorrhage, extra-axial fluid collection, mass, mass effect, vasogenic edema or midline shift. The cook-white matter differentiation is preserved. There is no effacement of the cerebral sulci or basal subarachnoid cisterns. The caliber of the ventricles is concordant w ith the degree of sulcation. There is no restricted diffusion on the DWI. The intracranial vascular flow voids are preserved. 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 The orbits and globes are normal in appearance. There is re- demonstration of partial opacification of the left mastoid air cells. The internal thomas tory canals and cerebral pontine angles are symmetric in appearance. IMPRESSION: No acute intracranial abnormality. EVIDENCE OF ACUTE STROKE: NO. TECHNICAL DOCUMENTATION: JOB ID: [id number] 2010 [employer]- All Rights Reserved Reading location - IP/workstation name: [email or web address]
[2020-03-23] MEDS ORDERED: LORAZEPAM INJ 2 MG/1 ML VIAL IV ONE (12:22)
[2020-03-23] MEDS ORDERED: DEXTROSE 40% GEL 15 GM TUBE PO PRN ×2 (14:46)
[2020-03-23] MEDS ORDERED: ONDANSETRON HCL INJ/PF 4 MG/2 ML SDV IV PRN (14:46)
[2020-03-23] MEDS ORDERED: DEXTROSE 50%-WATER 25 GM/50 ML DISP.SYRIN IV PRN ×2 (14:46)
[2020-03-23] MEDS ORDERED: GLUCAGON,HUMAN RECOMB 1 MG INJ IM PRN (14:46)
--- NOTE | 2020-03-23 15:02 | PDOC H&P ---
History of Present Illness Admission Date/PCP: CORBY BONILLA History of Present Illness: DAVID BAIN is a 54 year old female with a history of hypertension and adv-vbdlvrr-[id number] diabetes mellitus who presents with dizziness that started yesterday evening. She said she started to get dizzy while she was preparing dinner. It got worse after dinner. She said she thought that it was the high sodium load from the crab that she made. She noticed that when she laid down she felt better but every time she tried to sit up or stand up she would get dizzy. She describes it as the room spinning. She has not had any numbness or weakness. She had been in her usual state of health until this started yesterday evening. She is not been around anyone she knows to be sick. She is not running fevers or had any cough or shortness of breath. No upset stomach. No dysuria. In the ER her vital signs were fine while she was laying down, but when they did orthostatics on her her heart rate and blood pressure would both elevate. They improved whenever she laid back down. She seems to be more comfortable laying on her right side. Her symptoms seem to get worse when she turns her head to the left. She is not had any visual disturbances. She states she has a sensation of fullness in her left ear. She has never had a similar prior episode. Past Medical History Cardiac Medical History: Reports: Atrial Fibrillation, Myocardial Infarction - Per patient, Hyperlipidema, Hypertension Neurological Medical History: Denies: Seizures Endocrine Medical History: Reports: Diabetes Mellitus Type 2 GI Medical History: Reports: Hiatal Hernia Past Surgical History Past Surgical History: Reports: Cardiac Catheterization, Hysterectomy, Tubal Ligation Social History Lives with: Spouse/Significant other Smoking Status: Former Smoker - quit 20 years ago Frequency of Alcohol Use: Rare Hx Recreational Drug Use: No Hx Prescription Drug Abuse: No Family History Family History: CAD, CVA, DM, Hypertension, Malignancy Parental Family History Reviewed: Yes Children Family History Reviewed: Yes Sibling(s) Family History Reviewed.: Yes Medication/Allergy Home Medications: Cholecalciferol (Vitamin D3) [Vitamin D3 1000 Unit Tablet] 2,000 unit PO DAILY 03/23/20 Empagliflozin/Linagliptin [Glyxambi 10 mg-5 mg Tablet] 1 each PO DAILY 03/23/20 Ferrous Sulfate [Ferosul] 325 mg PO DAILY 03/23/20 Hydrochlorothiazide 12.5 mg PO DAILY 03/23/20 Telmisartan 40 mg PO DAILY 03/23/20 Allergies/Adverse Reactions: codeine Allergy (Verified 03/23/20 03:37) propofol [From Diprivan] Adverse Reaction (Verified 03/23/20 03:37) Review of Systems All systems: reviewed and no additional remarkable complaints except as stated - All systems were reviewed and were negative except as noted in the HPI Physical Exam Vital Signs: Temp Pulse Resp BP Pulse Ox 97.5 F 96 17 176/103 H 99 03/23/20 03:33 03/23/20 03:33 03/23/20 13:41 03/23/20 13:41 03/23/20 10:18 Intake & Output 03/22/20 03/23/20 03/24/20 06:59 06:59 06:59 Weight 74.63 kg General appearance: PRESENT: no acute distress, cooperative, disheveled, obese, other - She is laying on her right side Head exam: PRESENT: atraumatic, normocephalic Eye exam: PRESENT: EOMI, PERRLA. ABSENT: conjunctival injection, nystagmus, scl eral icterus Ear exam: PRESENT: normal external ear exam, TM's normal bilaterally Mouth exam: PRESENT: moist, neck supple Throat exam: ABSENT: post pharyngeal erythema Neck exam: PRESENT: full ROM. ABSENT: carotid bruit, JVD, lymphadenopathy, meningismus, tenderness, thyromegaly Respiratory exam: PRESENT: clear to auscultation nicole, symmetrical, unlabored. ABSENT: accessory muscle use, chest wall tenderness, crackles, rhonchi, tachypnea, wheezes Cardiovascular exam: PRESENT: RRR, +S1, +S2 Pulses: PRESENT: normal carotid pulses Vascular exam: PRESENT: normal capillary refill GI/Abdominal exam: PRESENT: normal bowel sounds, soft. ABSENT: distended, guarding, rebound, tenderness Extremities exam: ABSENT: clubbing, pedal edema Musculoskeletal exam: PRESENT: normal inspection. ABSENT: deformity Neurological exam: PRESENT: alert, awake, oriented to person, oriented to place, oriented to time, oriented to situation, CN II-XII grossly intact, other - Her symptoms are reproduced when she turns her head to the left while laying flat. ABSENT: motor sensory deficit Psychiatric exam: PRESENT: appropriate affect, normal mood Skin exam: PRESENT: dry, warm Results Laboratory Results: 03/23/20 03:33 03/23/20 03:33 03/23/20 03/23/20 03:33 03:33 WBC 10.9 H RBC 4.56 Hgb 13.0 Hct 39.3 MCV 86 MCH 28.6 MCHC 33.1 RDW 12.8 Plt Count 287 Seg Neutrophils % 57.2 Sodium 138.1 Potassium 3.4 L Chloride 100 Carbon Dioxide 27 Anion Gap 11 BUN 17 Creatinine 0.75 Est GFR ( Amer) > 60 Glucose 217 H Calcium 10.3 H Total Bilirubin 0.4 AST 37 H Alkaline Phosphatase 87 Total Protein 7.8 Albumin 4.5 03/23/20 03:33 Troponin I < 0.012 Impressions: Head CT 03/23/20 07:07 IMPRESSION: No acute intracranial hemorrhage is seen. Head MRI 03/23/20 08:26 IMPRESSION: No acute intracranial abnormality. EVIDENCE OF ACUTE STROKE: NO. Assessment and Plan - Diagnosis (1) Vertigo Is this a current diagnosis for this admission?: Yes Plan: Head CT and MRI were negative for fracture, bleeding, or ischemic stroke. She is not taking her blood pressure medications this morning so that may have something to do with the blood pressure issue. This had some features consistent with postural tachycardia syndrome, but the dizziness seems to be the strongest feature. It seems to be reproduced when she turns her head to the left. I was unable to perform the Louis-Hallpike maneuver on her because she would not tolerate it. She is gotten some IV fluids. We will monitor her overnight and give her meclizine. 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
[2020-03-23] MEDS: INSULIN LISPRO 100 UNIT/ML 3 ML VIAL SUBCUT SCH ×2 (16:49→21:59)
[2020-03-23] MEDS: MECLIZINE HCL 25 MG TABLET PO PRN (19:35)
[2020-03-24 05:58] LABS: ANION GAP 5 (5-19); BLOOD UREA NITROGEN 18 mg/dL (7-20); CALCIUM 9.4 mg/dL (8.4-10.2); CARBON DIOXIDE 28 mmol/L (22-30); CHLORIDE 105 mmol/L (98-107); GLUCOSE 147 mg/dL (75-110); POTASSIUM 3.9 mmol/L (3.6-5.0)
[2020-03-24] MEDS ORDERED: METFORMIN HCL 500 MG TABLET PO SCH (09:00)
[2020-03-24] MEDS: INSULIN LISPRO 100 UNIT/ML 3 ML VIAL SUBCUT SCH ×2 (09:28→11:27)
[2020-03-24] MEDS: MECLIZINE HCL 25 MG TABLET PO PRN (09:29)
[2020-03-24] MEDS ORDERED: (PENDING PHARMACY ID) (Telmisartan [Telmisartan] 40 MG) PO SCH (10:00)
[2020-03-24] MEDS ORDERED: HYDROCHLOROTHIAZIDE 12.5 MG TABLET PO SCH (10:00)
[2020-03-24] MEDS ORDERED: FERROUS SULFATE 325 MG TABLET PO SCH (10:00)
[2020-03-24] MEDS ORDERED: LOSARTAN POTASSIUM 50 MG TABLET PO SCH (10:00)
--- NOTE | 2020-03-24 11:31 | PDOC DISCHARGE SUMMARY ---
Impression - Admit/DC Date/PCP Admission Date/Primary Care Provider: 03/23/20 16:14 CORBY BONILLA Discharge Date: 03/24/20 - Discharge Diagnosis (1) Vestibular neuronitis of left ear Is this a current diagnosis for this admission?: Yes (2) Benign paroxysmal positional vertigo Is this a current diagnosis for this admission?: Yes (3) DM w/o complication type II Is this a current diagnosis for this admission?: Yes (4) HTN (hypertension) Is this a current diagnosis for this admission?: Yes - Additional Information Discharge Diet: Diabetic Referrals: JUAN DIEGO JOHN FNP [Primary Care Provider] - Follow up as needed Prescriptions: Meclizine HCl [Antivert 25 mg Tablet] 25 mg PO Q8HP PRN #30 tablet PRN Reason: Prednisone See Protocol PO DAILY #27 tablet Ondansetron [Zofran Odt 4 mg Tablet] 1 - 2 tab PO Q4HP PRN #10 tab.rapdis PRN Reason: For Nausea/Vomiting Home Medications: Cholecalciferol (Vitamin D3) [Vitamin D3 1000 Unit Tablet] 2,000 unit PO DAILY 03/23/20 Empagliflozin/Linagliptin [Glyxambi 10 mg-5 mg Tablet] 1 each PO DAILY 03/23/20 Ferrous Sulfate [Ferosul] 325 mg PO DAILY 03/23/20 Hydrochlorothiazide [Hydrodiuril 12.5 mg Tablet] 12.5 mg PO DAILY 03/23/20 Metformin HCl [Metformin HCl ER] 500 mg PO BIDBS 03/23/20 Telmisartan 40 mg PO DAILY 03/23/20 Meclizine HCl [Antivert 25 mg Tablet] 25 mg PO Q8HP PRN #30 tablet 03/24/20 Ondansetron [Zofran Odt 4 mg Tablet] 1 - 2 tab PO Q4HP PRN #10 tab.rapdis 03/24/20 Prednisone See Protocol PO DAILY #27 tablet 03/24/20 History of Present Illiness History of Present Illness: According to admitting provider: DAVID BAIN is a 54 year old female with a history of hypertension and [id number] diabetes mellitus who presents with dizziness that started yesterday evening. She said she started to get dizzy while she was preparing dinner. It got worse after dinner. She said she thought that it was the high sodium load from the crab that she made. She noticed that when she laid down she felt better but every time she tried to sit up or stand up she would get dizzy. She describes it as the room spinning. She has not had any numbness or weakness. She had been in her usual state of health until this started yesterday evening. She is not been around anyone she knows to be sick. She is not running fevers or had any cough or shortness of breath. No upset stomach. No dysuria. In the ER her vital signs were fine while she was laying down, but when they did orthostatics on her her heart rate and blood pressure would both elevate. They improved whenever she laid back down. She seems to be more comfortable laying on her right side. Her symptoms seem to get worse when she turns her head to the left. She is not had any visual disturbances. She states she has a sensation of fullness in her left ear. She has never had a similar prior episode. Hospital Course Hospital Course: Patient was admitted for evaluation of sudden onset vertigo. Patient reported that her vertigo seems to be positional upon turning left and states that she leans to the left side when she is walking or when she is sitting upright. Also complains of sensation of fullness in her left ear. Denied tinnitus or hearing loss. Head CT was done on admission which was unremarkable. MRI of the brain was also performed to rule out a central cause and MRI showed no evidence of a stroke. On performance of [place]-Hallpike maneuver today, patient seemed to experience significant vertigo when turning to the was the left side while supine and could not tolerate this position for long. Horizontal nystagmus was noted during this Hallpike maneuver and Master maneuver was performed by me with only very mild improvement. I believe the patient's vertigo is peripheral and caused likely by vestibular neuronitis [given fullness sensation in left ear] and/or BPPV. I have opted to treat both conditions and patient is being discharged with Zofran as needed, as needed meclizine, prednisone short-term for treatment of possible neuronitis and has been set up with outpatient physical therapy for vestibular therapy. Physical Exam Vital Signs: Temp Pulse Resp BP Pulse Ox 97.4 F 80 17 133/76 H 97 03/24/20 07:25 03/24/20 07:25 03/24/20 07:25 03/24/20 07:25 03/24/20 07:25 Intake & Output 03/23/20 03/24/20 03/25/20 06:59 06:59 06:59 Intake Total 1050 Output Total 400 Balance 650 Weight 74.63 kg 73.9 kg General appearance: PRESENT: no acute distress, cooperative Eye exam: PRESENT: nystagmus - Horizontal nystagmus noted on performance of [place]- Hallpike maneuver Neurological exam: PRESENT: abnormal gait - Unsteady. Leans to left side. Results Laboratory Results: WBC 10.9 10^3/uL (4.0-10.5) H 03/23/20 03:33 RBC 4.56 10^6/uL (3.72-5.28) 03/23/20 03:33 Hgb 13.0 g/dL (12.0-15.5) 03/23/20 03:33 Hct 39.3 % (36.0-47.0) 03/23/20 03:33 MCV 86 fl (80-97) 03/23/20 03:33 MCH 28.6 pg (27.0-33.4) 03/23/20 03:33 MCHC 33.1 g/dL (32.0-36.0) 03/23/20 03:33 RDW 12.8 % (11.5-14.0) 03/23/20 03:33 Plt Count 287 10^3/uL (150-450) 03/23/20 03:33 Lymph % (Auto) 36.1 % (13-45) 03/23/20 03:33 [place] % (Auto) 5.2 % (3-13) 03/23/20 03:33 Eos % (Auto) 1.0 % (0-6) 03/23/20 03:33 Baso % (Auto) 0.5 % (0-2) 03/23/20 03:33 Absolute Neuts (auto) 6.2 10^3/uL (1.7-8.2) 03/23/20 03:33 Absolute Lymphs (auto) 3.9 10^3/uL (0.5-4.7) 03/23/20 03:33 Absolute Monos (auto) 0.6 10^3/uL (0.1-1.4) 03/23/20 03:33 Absolute Eos (auto) 0.1 10^3/uL (0.0-0.6) 03/23/20 03:33 Absolute Basos (auto) 0.1 10^3/uL (0.0-0.2) 03/23/20 03:33 Seg Neutrophils % 57.2 % (42-78) 03/23/20 03:33 Sodium 137.7 mmol/L (137-145) 03/24/20 04:54 Potassium 3.9 mmol/L (3.6-5.0) 03/24/20 04:54 Chloride 105 mmol/L (98-107) 03/24/20 04:54 Carbon Dioxide 28 mmol/L (22-30) 03/24/20 04:54 Anion Gap 5 (5-19) 03/24/20 04:54 BUN 18 mg/dL (7-20) 03/24/20 04:54 Creatinine 0.76 mg/dL (0.52-1.25) 03/24/20 04:54 Est GFR ( Amer) > 60 (>60) 03/24/20 04:54 Est GFR (MDRD) Non-Af > 60 (>60) 03/24/20 04:54 Glucose 147 mg/dL (75-110) H 03/24/20 04:54 POC Glucose 253 mg/dL (70-110) H 03/24/20 11:10 Calcium 9.4 mg/dL (8.4-10.2) 03/24/20 04:54 Total Bilirubin 0.4 mg/dL (0.2-1.3) 03/23/20 03:33 Direct Bilirubin 0.0 mg/dL (0.0-0.4) 03/23/20 03:33 Neonat Total Bilirubin 0.5 mg/dL (0.1-1.1) 03/23/20 03:33 Neonat Direct Bilirubin 0.0 mg/dL (0.0-0.3) 03/23/20 03:33 Neonat Indirect Bili 0.5 mg/dL (0.0-1.1) 03/23/20 03:33 AST 37 U/L (14-36) H 03/23/20 03:33 ALT 55 U/L (<35) H 03/23/20 03:33 Alkaline Phosphatase 87 U/L (38-126) 03/23/20 03:33 Troponin I < 0.012 ng/mL 03/23/20 03:33 Total Protein 7.8 g/dL (6.3-8.2) 03/23/20 03:33 Albumin 4.5 g/dL (3.5-5.0) 03/23/20 03:33 03/23/20 03:33 Troponin I < 0.012 Impressions: Head CT 03/23/20 07:07 IMPRESSION: No acute intracranial hemorrhage is seen. Head MRI 03/23/20 08:26 IMPRESSION: No acute intracranial abnormality. EVIDENCE OF ACUTE STROKE: NO. Plan Time Spent: Less than 30 Minutes Stroke Is this a Stroke Patient?: No Acute Heart Failure - Is this a Heart Failure Patient?: No
[2020-03-24 12:08] VITALS: BP 129/68
== END 2020-03-24 12:57 | disposition home or self-care (01) ==
LOC: ER 03:16 → EH 16:14 → 4N 18:56
PROVIDERS: ADMIT Family Medicine; ATTEND Internal Medicine
DX: H81.22 Vestibular neuronitis, left ear (principal); H81.12 Benign paroxysmal vertigo, left ear; E11.9 Type 2 diabetes mellitus without complications; I10 Essential (primary) hypertension; E66.9 Obesity, unspecified; I25.2 Old myocardial infarction; Z79.899 Other long term (current) drug therapy; Z79.84 Long term (current) use of oral hypoglycemic drugs; Z87.891 Personal history of nicotine dependence; Z82.3 Family history of stroke; Z82.49 Family history of ischemic heart disease and other diseases of the circulatory system
CPT/HCPCS: 93005; 99285; 96361; 96374; 96375; 36415 ×2; 82962 ×2; 85025; 80048; 80053; 84484; 70551; 71045; 70450; 93010; G0378 ×3; J1815 ×2; J3490 ×2; J2060; J2405; J7030